=== PATIENT | female | born 1965 | race Caucasian/White ===

== ENCOUNTER 2019-07-12 11:28 | Emergency (ER) | payer OTHER | END 2019-07-12 12:53 | disposition left against medical advice (07) | LOC: ERS 11:28 | DX: Z53.21 Procedure and treatment not carried out due to patient leaving prior to being seen by health care provider (principal) ==

== ENCOUNTER 2023-08-03 17:08 | Inpatient (IN) | payer OTHER ==
[~2023-08-03 17:08] MED LIST: Iopamidol 370 76% 100 ML VIAL ONE
[2023-08-03] MEDS ORDERED: Magnesium 2 GM/50 ML BAG (IN WATER) ONE ×2 (17:10→18:14)
[2023-08-03] MEDS ORDERED: Amiodarone 150 MG/3 ML VIAL ONE ×3 (17:11→18:15)
[2023-08-03] MEDS ORDERED: Ondansetron PF 4 MG/2 ML Vial ONE (17:17)
[2023-08-03 17:26] LABS: #Basophils 0.1 thou/uL (0.0-0.2); #Eosinphils 0.1 thou/uL (0.0-0.7); #Monocytes 1.1 thou/uL (0.11-0.59); #Neutrophils 7.4 thou/uL (1.40-6.50); %Basophils 0.4 % (0.0-1.0); %Eosinophils 0.5 % (0.0-10.0); %Lymphocytes 38.2 % (21.0-51.0); %Monocytes 7.7 % (0.0-10.0); %Neutrophils 53.1 % (42.0-75.0); Hematocrit 43.3 % (36.0-47.0); Hemoglobin 15.5 g/dL (12.0-16.0); Mean Corpuscular HGB CONC 35.8 g/dL (32.0-36.0); Mean Corpuscular Hemoglobin 31.9 pg (27.0-31.0); Mean Corpuscular Volume 89.1 fl (78.0-98.0); Mean Platelet Volume 9.7 fL (7.4-10.4); Platelet Count 390 10x3/uL (130-400); RBC Distribution Width 15.8 % (11.5-14.5); Red Blood Cell (RBC) Count 4.86 mill/uL (4.20-5.40); White Blood Cell (WBC) Count 13.9 10x3/uL (4.8-10.8)
[2023-08-03] MEDS ORDERED: Amiodarone 450 MG, Admixture Fee 1 EACH in Dextrose 5% in Water 250 ML IVPB SCH ×2 (17:45→18:15)
[2023-08-03 17:56] LABS: Troponin I 0.105 ng/mL (< 0.028)
[2023-08-03 18:29] LABS: ALT (SGPT) 16 U/L (8-55); AST (SGOT) 23 U/L (5-34); Albumin 4.4 g/dL (3.5-5.0); Alkaline Phosphatase 90 U/L (40-110); Anion Gap 18 mmol/L (10-20); BUN (Urea Nitrogen) 7 mg/dL (9.8-20.1); Bilirubin, Total 0.8 mg/dL (0.2-1.2); Calc. Creatinine Clearance 0 mL/min (70-130); Calcium 10.7 mg/dL (7.8-10.44); Carbon Dioxide 29 mmol/L (22-29); Chloride 90 mmol/L (98-107); Estimated GFR 51; Glucose 348 mg/dL (70-105); Protein, Total 8.4 g/dL (6.0-8.3); Sodium 136 mmol/L (136-145)
[2023-08-03 18:35] LABS: Potassium 2.1 mmol/L (3.5-5.1)
[2023-08-03] MEDS ORDERED: Potassium Chloride 20 MEQ TAB ONE (18:36)
[2023-08-03] MEDS ORDERED: Potassium Chloride 20 MEQ/100 ML PREMIX BAG ONE ×2 (18:38→20:52)
[2023-08-03] MEDS ORDERED: Promethazine HCl 25 MG/ML VIAL ONE (18:49)
[2023-08-03 19:23] LABS: Magnesium 3.6 mg/dL (1.6-2.6)
[2023-08-03] MEDS ORDERED: Lidocaine 2% PF 100 mg/5 ml Syringe ONE ×3 (19:29→20:56)
[2023-08-03] MEDS ORDERED: Lidocaine 2 gm/D5W 500 ml 0 ML ONE (19:35)
[2023-08-03] MEDS ORDERED: Glucagon 1 MG/ML KIT IM PRN (19:47)
[2023-08-03] MEDS ORDERED: Dextrose 50% Abboject 50 ML SYRINGE SLOW IVP PRN (19:47)
[2023-08-03] MEDS ORDERED: HumaLOG 300 UNITS/3 ML VIAL SC PRN (19:47)
[2023-08-03] MEDS ORDERED: Electrolyte Replacement Protocol 1 EACH IVPB SCH (19:47)
[2023-08-03] MEDS ORDERED: Dextrose 5% in Water 1,000 ML IV PRN (19:47)
[2023-08-03] MEDS ORDERED: Nitroglycerin 50 MG/250 ML BOT 0 ML ONE (20:06)
[2023-08-03] MEDS ORDERED: Lidocaine 1% (PF) 30 ML VIAL ONE (20:06)
[2023-08-03] MEDS ORDERED: Heparin 10,000 UNITS/ 10 ML VIAL ONE (20:06)
[2023-08-03] MEDS ORDERED: Atropine Sulfate 1 mg/10 ml Syringe ONE (20:11)
[2023-08-03] MEDS ORDERED: EPINEPHrine 1 MG/10 ML Abboject SYRINGE ONE (20:11)
[2023-08-03] MEDS ORDERED: Norepinephrine 4 MG/4 ML VIAL ONE (20:22)
[2023-08-03] MEDS ORDERED: fentaNYL 50 mcg/mL 1 mL Vial ONE (20:30)
[2023-08-03] MEDS ORDERED: Midazolam HCl 2 mg/2 ml Vial ONE (20:30)
[2023-08-03] MEDS ORDERED: PHENYLEPHRINE-NS 100 MCG/ML 10 ML SYRINGE ONE (20:31)
[2023-08-03] MEDS ORDERED: DOPamine 400 MG/D5W 250 ML 250 ML ONE (20:31)
[2023-08-03 20:46] LABS: Hemoglobin A1c 7.5 % (4.0-6.0)
[2023-08-03 20:59] LABS: Troponin I 0.067 ng/mL (< 0.028)
[2023-08-03 21:04] LABS: Cardiac Risk 2.9 (Less than 4.5)
[2023-08-03 21:48] LABS: Anion Gap 23 mmol/L (10-20); BUN (Urea Nitrogen) 7 mg/dL (9.8-20.1); Calc. Creatinine Clearance 0 mL/min (70-130); Calcium 9.2 mg/dL (7.8-10.44); Carbon Dioxide 20 mmol/L (22-29); Chloride 95 mmol/L (98-107); Estimated GFR 67; Glucose 380 mg/dL (70-105); Sodium 136 mmol/L (136-145)
[2023-08-03 21:57] LABS: Potassium 2.1 mmol/L (3.5-5.1)
[2023-08-03] MEDS: Lactated Ringer's 1,000 ML IV SCH (22:00)
[2023-08-03] MEDS ORDERED: Lidocaine 2 gm/D5W 500 ml 500 ML IVPB SCH (22:15)
[2023-08-03 23:24] LABS: Lactic Acid 2.4 mmol/L (0.5-2.2)
[2023-08-03 23:27] LABS: Anion Gap 17 mmol/L (10-20); BUN (Urea Nitrogen) 6 mg/dL (9.8-20.1); Calc. Creatinine Clearance 0 mL/min (70-130); Calcium 8.6 mg/dL (7.8-10.44); Carbon Dioxide 26 mmol/L (22-29); Chloride 99 mmol/L (98-107); Estimated GFR 78; Glucose 344 mg/dL (70-105); Sodium 139 mmol/L (136-145)
[2023-08-03 23:40] LABS: Potassium 2.6 mmol/L (3.5-5.1)
[2023-08-03 23:59] LABS: Troponin I 0.096 ng/mL (< 0.028)
[2023-08-04] MEDS ORDERED: Potassium Chloride 20 MEQ in Premix Bag 1 BAG IVPB SCH
[2023-08-04] MEDS: Potassium Chloride 40 MEQ in Premix Bag 1 BAG IVPB SCH ×2 (00:34→02:25)
[2023-08-04] MEDS ORDERED: hydrALAZINE 20 MG/ML VIAL SLOW IVP PRN (00:45)
[2023-08-04] MEDS ORDERED: Labetalol HCl 100 MG/20 ML VIAL SLOW IVP PRN (00:45)
[2023-08-04 05:24] LABS: #Eosinphils 0.1 thou/uL (0.0-0.7); #Monocytes 0.6 thou/uL (0.11-0.59); #Neutrophils 5.1 thou/uL (1.40-6.50); %Basophils 0.4 % (0.0-1.0); %Eosinophils 0.6 % (0.0-10.0); %Lymphocytes 31.7 % (21.0-51.0); %Monocytes 7.4 % (0.0-10.0); %Neutrophils 59.5 % (42.0-75.0); Hematocrit 34.8 % (36.0-47.0); Mean Corpuscular HGB CONC 35.3 g/dL (32.0-36.0); Mean Corpuscular Hemoglobin 31.9 pg (27.0-31.0); Mean Corpuscular Volume 90.2 fl (78.0-98.0); Mean Platelet Volume 9.8 fL (7.4-10.4); Platelet Count 289 10x3/uL (130-400); RBC Distribution Width 15.9 % (11.5-14.5); Red Blood Cell (RBC) Count 3.86 mill/uL (4.20-5.40); White Blood Cell (WBC) Count 8.5 10x3/uL (4.8-10.8)
[2023-08-04 05:50] LABS: ALT (SGPT) 10 U/L (8-55); AST (SGOT) 16 U/L (5-34); Albumin 3.2 g/dL (3.5-5.0); Alkaline Phosphatase 66 U/L (40-110); Anion Gap 11 mmol/L (10-20); BUN (Urea Nitrogen) 5 mg/dL (9.8-20.1); Bilirubin, Total 0.7 mg/dL (0.2-1.2); Calc. Creatinine Clearance 93 mL/min (70-130); Calcium 8.4 mg/dL (7.8-10.44); Carbon Dioxide 31 mmol/L (22-29); Chloride 101 mmol/L (98-107); Estimated GFR 88; Globulin 2.5 g/dL (2.4-3.5); Glucose 243 mg/dL (70-105); Potassium 3.4 mmol/L (3.5-5.1); Protein, Total 5.7 g/dL (6.0-8.3); Sodium 140 mmol/L (136-145)
[2023-08-04] MEDS: Lactated Ringer's 1,000 ML IV SCH (05:59)
[2023-08-04 06:05] LABS: Hemoglobin 12.3 g/dL (12.0-16.0)
[2023-08-04] MEDS ORDERED: Potassium Chloride 40 MEQ in Premix Bag 1 BAG IVPB SCH ×4 (09:00→23:00)
[2023-08-04] MEDS ORDERED: Enalaprilat Dihydrate 1.25 MG/ML VIAL SLOW IVP SCH (09:00)
[2023-08-04] MEDS ORDERED: Ergocalciferol 1.25 MG(50,000 UNITS) CAP PO SCH (09:00)
[2023-08-04] MEDS: Famotidine/PF 20 mg/2ml Vial SLOW IVP SCH ×3 (09:08→20:45)
[2023-08-04] MEDS: Acetaminophen 325 MG TAB PO PRN (10:46)
[2023-08-04] MEDS ORDERED: Dextrose 50% Abboject 50 ML SYRINGE SLOW IVP PRN (11:16)
[2023-08-04] MEDS ORDERED: Glucagon 1 MG/ML KIT IM PRN (11:16)
[2023-08-04] MEDS ORDERED: Dextrose 5% in Water 1,000 ML IV PRN (11:16)
[2023-08-04] MEDS ORDERED: Lisinopril 5 MG TAB PO SCH (11:30)
[2023-08-04] MEDS: HumaLOG 300 UNITS/3 ML VIAL SC PRN ×3 (11:40→21:42)
[2023-08-04] MEDS ORDERED: Loperamide HCl 2 MG CAP PO SCH (12:34)
[2023-08-04 14:58] LABS: Anion Gap 13 mmol/L (10-20); BUN (Urea Nitrogen) 5 mg/dL (9.8-20.1); Calc. Creatinine Clearance 77 mL/min (70-130); Calcium 8.5 mg/dL (7.8-10.44); Carbon Dioxide 29 mmol/L (22-29); Chloride 99 mmol/L (98-107); Estimated GFR 70; Glucose 273 mg/dL (70-105); Potassium 3.3 mmol/L (3.5-5.1); Sodium 138 mmol/L (136-145)
[2023-08-04] MEDS ORDERED: glipiZIDE XL 5 mg ER.TAB PO SCH (17:00)
[2023-08-04] MEDS: Lisinopril 5 MG TAB PO SCH (20:43)
[2023-08-04] MEDS: FLUoxetine HCl 20 MG CAP PO SCH (20:43)
[2023-08-04] MEDS: DULoxetine 30 MG CAP PO SCH (20:43)
[2023-08-04] MEDS: Montelukast Sodium 10 mg Tablet PO SCH (20:43)
[2023-08-04 20:45] LABS: Anion Gap 12 mmol/L (10-20); BUN (Urea Nitrogen) 6 mg/dL (9.8-20.1); Calc. Creatinine Clearance 85 mL/min (70-130); Calcium 8.3 mg/dL (7.8-10.44); Carbon Dioxide 29 mmol/L (22-29); Chloride 98 mmol/L (98-107); Estimated GFR 80; Glucose 252 mg/dL (70-105); Potassium 3.3 mmol/L (3.5-5.1); Sodium 136 mmol/L (136-145)
[2023-08-04] MEDS ORDERED: Famotidine/PF 20 mg/2ml Vial SLOW IVP SCH (21:00)
[2023-08-04] MEDS: Famotidine 20 MG TAB PO SCH (21:03)
[2023-08-05 04:52] LABS: #Eosinphils 0.2 thou/uL (0.0-0.7); #Monocytes 0.5 thou/uL (0.11-0.59); #Neutrophils 5.1 thou/uL (1.40-6.50); %Basophils 0.3 % (0.0-1.0); %Eosinophils 2.3 % (0.0-10.0); %Lymphocytes 32.1 % (21.0-51.0); %Monocytes 6.1 % (0.0-10.0); %Neutrophils 58.9 % (42.0-75.0); Hematocrit 34.9 % (36.0-47.0); Hemoglobin 11.9 g/dL (12.0-16.0); Mean Corpuscular HGB CONC 34.1 g/dL (32.0-36.0); Mean Corpuscular Hemoglobin 31.7 pg (27.0-31.0); Mean Platelet Volume 9.6 fL (7.4-10.4); Platelet Count 238 10x3/uL (130-400); RBC Distribution Width 16.5 % (11.5-14.5); Red Blood Cell (RBC) Count 3.75 mill/uL (4.20-5.40); White Blood Cell (WBC) Count 8.6 10x3/uL (4.8-10.8)
[2023-08-05 05:00] LABS: Mean Corpuscular Volume 93.1 fl (78.0-98.0)
[2023-08-05 05:11] VITALS: BMI 32.3
[2023-08-05 05:14] LABS: ALT (SGPT) 9 U/L (8-55); AST (SGOT) 15 U/L (5-34); Albumin 3.2 g/dL (3.5-5.0); Alkaline Phosphatase 61 U/L (40-110); Anion Gap 11 mmol/L (10-20); BUN (Urea Nitrogen) 4 mg/dL (9.8-20.1); Bilirubin, Total 0.5 mg/dL (0.2-1.2); Calc. Creatinine Clearance 100 mL/min (70-130); Calcium 8.4 mg/dL (7.8-10.44); Carbon Dioxide 31 mmol/L (22-29); Chloride 102 mmol/L (98-107); Estimated GFR 97; Globulin 2.7 g/dL (2.4-3.5); Glucose 151 mg/dL (70-105); Potassium 3.9 mmol/L (3.5-5.1); Protein, Total 5.9 g/dL (6.0-8.3); Sodium 140 mmol/L (136-145)
[2023-08-05] MEDS ORDERED: Potassium Chloride 20 MEQ TAB PO SCH (08:30)
[2023-08-05] MEDS: Famotidine 20 MG TAB PO SCH ×2 (08:37→20:04)
[2023-08-05] MEDS: Lisinopril 5 MG TAB PO SCH (08:37)
[2023-08-05] MEDS ORDERED: Loperamide HCl 2 MG CAP PO PRN (08:38)
[2023-08-05] MEDS ORDERED: Lisinopril 10 MG TAB PO SCH (09:00)
[2023-08-05] MEDS ORDERED: Lisinopril 5 MG TAB PO SCH ×2 (09:11→09:30)
[2023-08-05] MEDS ORDERED: glipiZIDE XL 5 mg ER.TAB PO SCH (11:00)
[2023-08-05] MEDS: Colestipol 1 GM TAB PO SCH ×2 (12:41→21:44)
[2023-08-05] MEDS: HumaLOG 300 UNITS/3 ML VIAL SC PRN (16:16)
[2023-08-05] MEDS: Potassium Chloride 20 MEQ TAB PO SCH (16:16)
[2023-08-05] MEDS: Lisinopril 10 MG TAB PO SCH (20:03)
[2023-08-05] MEDS: Montelukast Sodium 10 mg Tablet PO SCH (20:04)
[2023-08-05] MEDS: FLUoxetine HCl 20 MG CAP PO SCH (20:04)
[2023-08-05] MEDS: DULoxetine 30 MG CAP PO SCH (20:04)
[2023-08-06 04:09] LABS: ALT (SGPT) 7 U/L (8-55); AST (SGOT) 14 U/L (5-34); Albumin 3.1 g/dL (3.5-5.0); Alkaline Phosphatase 56 U/L (40-110); Anion Gap 12 mmol/L (10-20); BUN (Urea Nitrogen) 6 mg/dL (9.8-20.1); Bilirubin, Total 0.4 mg/dL (0.2-1.2); Calc. Creatinine Clearance 103 mL/min (70-130); Calcium 8.7 mg/dL (7.8-10.44); Carbon Dioxide 26 mmol/L (22-29); Chloride 102 mmol/L (98-107); Estimated GFR 99; Globulin 2.6 g/dL (2.4-3.5); Glucose 143 mg/dL (70-105); Potassium 4.2 mmol/L (3.5-5.1); Protein, Total 5.7 g/dL (6.0-8.3); Sodium 136 mmol/L (136-145)
[2023-08-06] MEDS ORDERED: Ergocalciferol 1.25 MG(50,000 UNITS) CAP PO SCH ×2 (09:00)
[2023-08-06] MEDS: Lisinopril 10 MG TAB PO SCH ×2 (09:27→20:42)
[2023-08-06] MEDS: Famotidine 20 MG TAB PO SCH ×2 (09:27→20:42)
[2023-08-06] MEDS: glipiZIDE XL 10 mg ER.TAB PO SCH (09:28)
[2023-08-06] MEDS: Colestipol 1 GM TAB PO SCH ×2 (09:28→20:41)
[2023-08-06] MEDS: Potassium Chloride 20 MEQ TAB PO SCH ×2 (09:28→16:55)
[2023-08-06] MEDS: Montelukast Sodium 10 mg Tablet PO SCH (20:41)
[2023-08-06] MEDS: FLUoxetine HCl 20 MG CAP PO SCH (20:42)
[2023-08-06] MEDS: DULoxetine 30 MG CAP PO SCH (20:42)
[2023-08-07 06:15] LABS: ALT (SGPT) 10 U/L (8-55); AST (SGOT) 18 U/L (5-34); Albumin 3.5 g/dL (3.5-5.0); Alkaline Phosphatase 65 U/L (40-110); Anion Gap 12 mmol/L (10-20); BUN (Urea Nitrogen) 6 mg/dL (9.8-20.1); Bilirubin, Total 0.5 mg/dL (0.2-1.2); Calc. Creatinine Clearance 99 mL/min (70-130); Calcium 9.4 mg/dL (7.8-10.44); Carbon Dioxide 24 mmol/L (22-29); Chloride 103 mmol/L (98-107); Estimated GFR 96; Glucose 143 mg/dL (70-105); Potassium 5.1 mmol/L (3.5-5.1); Protein, Total 6.5 g/dL (6.0-8.3); Sodium 134 mmol/L (136-145)
[2023-08-07 06:54] LABS: #Eosinphils 0.3 thou/uL (0.0-0.7); #Monocytes 0.5 thou/uL (0.11-0.59); #Neutrophils 4.3 thou/uL (1.40-6.50); %Basophils 0.4 % (0.0-1.0); %Eosinophils 4.1 % (0.0-10.0); %Lymphocytes 34.3 % (21.0-51.0); %Monocytes 5.9 % (0.0-10.0); Hematocrit 38.5 % (36.0-47.0); Hemoglobin 13.1 g/dL (12.0-16.0); Mean Corpuscular Hemoglobin 32.3 pg (27.0-31.0); Mean Corpuscular Volume 94.8 fl (78.0-98.0); Mean Platelet Volume 9.7 fL (7.4-10.4); Platelet Count 287 10x3/uL (130-400); RBC Distribution Width 16.2 % (11.5-14.5); Red Blood Cell (RBC) Count 4.06 mill/uL (4.20-5.40); White Blood Cell (WBC) Count 7.8 10x3/uL (4.8-10.8)
[2023-08-07] MEDS: Lisinopril 10 MG TAB PO SCH ×2 (08:19→20:21)
[2023-08-07] MEDS: Famotidine 20 MG TAB PO SCH ×2 (08:19→20:20)
[2023-08-07] MEDS: Potassium Chloride 20 MEQ TAB PO SCH (08:19)
[2023-08-07] MEDS: Colestipol 1 GM TAB PO SCH ×2 (09:24→20:21)
[2023-08-07] MEDS: glipiZIDE XL 10 mg ER.TAB PO SCH (09:25)
[2023-08-07] MEDS ORDERED: Iopamidol 370 76% 100 ML VIAL ONE (11:57)
[2023-08-07] MEDS ORDERED: CEFAZOLIN 2 GM VIAL ONE (12:35)
[2023-08-07] MEDS ORDERED: Lidocaine 1% (PF) 30 ML VIAL ONE (12:35)
[2023-08-07] MEDS ORDERED: Gentamicin 80 MG/2 ML VIAL ONE (12:35)
[2023-08-07] MEDS ORDERED: fentaNYL PF 100 MCG/2 ML SYRINGE ONE (14:14)
[2023-08-07] MEDS ORDERED: SUGAMMADEX SODIUM 200 MG/2 ML VIAL ONE (14:14)
[2023-08-07] MEDS ORDERED: Sevoflurane 250 ML INH ANEST BOTTLE ONE (14:14)
[2023-08-07] MEDS ORDERED: PHENYLEPHRINE-NS 100 MCG/ML 10 ML SYRINGE ONE (14:45)
[2023-08-07] MEDS ORDERED: Lidocaine 1% PF 5 ML VIAL ONE (14:45)
[2023-08-07] MEDS ORDERED: PROPOFOL 200 MG/20 ML VIAL ONE (14:45)
[2023-08-07] MEDS: DULoxetine 30 MG CAP PO SCH (20:20)
[2023-08-07] MEDS: FLUoxetine HCl 20 MG CAP PO SCH (20:20)
[2023-08-07] MEDS: Montelukast Sodium 10 mg Tablet PO SCH (20:21)
[2023-08-07] MEDS: Acetaminophen 325 MG TAB PO PRN (20:21)
[2023-08-07] MEDS ORDERED: Ibuprofen 200 MG TAB PO SCH (22:45)
[2023-08-08 05:02] LABS: ALT (SGPT) 9 U/L (8-55); AST (SGOT) 19 U/L (5-34); Albumin 3.6 g/dL (3.5-5.0); Alkaline Phosphatase 62 U/L (40-110); Anion Gap 12 mmol/L (10-20); BUN (Urea Nitrogen) 9 mg/dL (9.8-20.1); Bilirubin, Total 0.6 mg/dL (0.2-1.2); Calc. Creatinine Clearance 84 mL/min (70-130); Calcium 9.4 mg/dL (7.8-10.44); Carbon Dioxide 27 mmol/L (22-29); Chloride 101 mmol/L (98-107); Estimated GFR 81; Globulin 2.8 g/dL (2.4-3.5); Glucose 197 mg/dL (70-105); Potassium 4.7 mmol/L (3.5-5.1); Protein, Total 6.4 g/dL (6.0-8.3); Sodium 135 mmol/L (136-145)
[2023-08-08] MEDS: Famotidine 20 MG TAB PO SCH (09:03)
[2023-08-08] MEDS: glipiZIDE XL 10 mg ER.TAB PO SCH (09:03)
[2023-08-08] MEDS: Lisinopril 10 MG TAB PO SCH (09:03)
[2023-08-08] MEDS: Colestipol 1 GM TAB PO SCH (11:20)
[2023-08-08 12:02] VITALS: BP 136/78; TEMP 98.1
[2023-08-16] MEDS ORDERED: SEMAGLUTIDE 0.25 MG/0.368 ML SC SCH (09:00)
== END 2023-08-08 15:50 | disposition home or self-care (01) | DRG 275 ==
LOC: ERS 17:08 → 2NO 19:33 → CCU 21:21 → 2NO 08-06 04:46
PROVIDERS: ADMIT Family Medicine; ATTEND Family Medicine
PROC: 4A023N7 Measurement of Cardiac Sampling and Pressure, Left Heart, Percutaneous Approach (ICD-10-PCS; 2023-08-03)
PROC: B2111ZZ Fluoroscopy of Multiple Coronary Arteries using Low Osmolar Contrast (ICD-10-PCS; 2023-08-03)
PROC: B2151ZZ Fluoroscopy of Left Heart using Low Osmolar Contrast (ICD-10-PCS; 2023-08-03)
PROC: 06HY33Z Insertion of Infusion Device into Lower Vein, Percutaneous Approach (ICD-10-PCS; 2023-08-03)
PROC: 3E033XZ Introduction of Vasopressor into Peripheral Vein, Percutaneous Approach (ICD-10-PCS; 2023-08-03)
PROC: B54CZZA Ultrasonography of Left Lower Extremity Veins, Guidance (ICD-10-PCS; 2023-08-03)
PROC: 0JH608Z Insertion of Defibrillator Generator into Chest Subcutaneous Tissue and Fascia, Open Approach (ICD-10-PCS; principal; 2023-08-08)
PROC: 02H63KZ Insertion of Defibrillator Lead into Right Atrium, Percutaneous Approach (ICD-10-PCS; 2023-08-08)
PROC: 02HK3KZ Insertion of Defibrillator Lead into Right Ventricle, Percutaneous Approach (ICD-10-PCS; 2023-08-08)
PROC: 3E0132A Introduction of Anti-Infective Envelope into Subcutaneous Tissue, Percutaneous Approach (ICD-10-PCS; 2023-08-08)
DX: I47.21 Torsades de pointes (principal); I21.4 Non-ST elevation (NSTEMI) myocardial infarction; E87.20 Acidosis, unspecified; N17.9 Acute kidney failure, unspecified; R55 Syncope and collapse; E87.6 Hypokalemia; E11.9 Type 2 diabetes mellitus without complications; M79.7 Fibromyalgia; Z91.040 Latex allergy status; Z88.2 Allergy status to sulfonamides; Z98.84 Bariatric surgery status; Z88.5 Allergy status to narcotic agent; Z79.899 Other long term (current) drug therapy; Z79.84 Long term (current) use of oral hypoglycemic drugs; Z90.49 Acquired absence of other specified parts of digestive tract; Z90.710 Acquired absence of both cervix and uterus; I45.81 Long QT syndrome; F17.210 Nicotine dependence, cigarettes, uncomplicated; R19.7 Diarrhea, unspecified; I47.20 Ventricular tachycardia, unspecified; I49.01 Ventricular fibrillation
CPT/HCPCS: 33249; 36415; 36416; 71045; 80053; 80061; 83036; 83605; 83735; 84443; 84484; 85025; 93005; 93010; 93306; 93458; 96365; 96366; 96367; 96374; 96375; 96376; 99152; 99153; C1721; C1763; C1769; C1777; C1894; C1898; J0171; J0282; J0461; J1265; J1580; J1644; J1650; J1815; J2001; J2250; J2405; J2550; J2704; J3010; J3475; J3480; J7120; Q9967; S0028